=== PATIENT | male | born 1995 | race Two or more races ===

== ENCOUNTER 2021-10-05 16:24 | Emergency (ER) | payer OTHER ==
[~2021-10-05] VITALS: Ht 182.9 cm; Wt 91.0 kg
[2021-10-05] MEDS ORDERED: PERTUSS(ACELL),DIPH,TET VAC/PF 0.5 ML SYRINGE IM. ONE (18:15)
[2021-10-05] MEDS ORDERED: KETOROLAC TROMETHAMINE 30 MG/ML VIAL IM ONE (18:15)
[2021-10-05] MEDS ORDERED: BACITRACIN 0.9 GM PACKET OINTMENT TP ONE (18:15)
[2021-10-05] MEDS ORDERED: ACETAMINOPHEN 500 MG TABLET PO ONE (18:15)
[2021-10-05] MEDS ORDERED: DOXYCYCLINE HYCLATE 100 MG TABLET PO ONE ×2 (19:00→19:45)
[2021-10-05] MEDS ORDERED: LIDOCAINE/PF 1% 2 ML VIAL IM ONE (19:45)
[2021-10-05] MEDS ORDERED: CefTRIAXone SODIUM 1 GM/VIAL IM ONE (19:45)
[2021-10-05 20:52] LABS: COVID AG,FIA SOURCE NASOPHARYNGEAL
[2021-10-05 21:11] VITALS: BP 129/75
== END 2021-10-05 21:14 ==
LOC: EMS 16:27
DX: S91.112A Laceration without foreign body of left great toe without damage to nail, initial encounter (principal); S90.112A Contusion of left great toe without damage to nail, initial encounter; Z20.822 Contact with and (suspected) exposure to COVID-19; W45.8XXA Other foreign body or object entering through skin, initial encounter; Y93.89 Activity, other specified; Y92.89 Other specified places as the place of occurrence of the external cause; Y99.8 Other external cause status
CPT/HCPCS: 99284; 87426; 73660; 90715; 90471; 96372; J0696; J1885; J3490

== ENCOUNTER 2021-10-10 14:51 | Emergency (ER) | payer OTHER ==
[~2021-10-10] VITALS: Ht 182.9 cm; Wt 95.5 kg
[2021-10-10] MEDS ORDERED: ACETAMINOPHEN 500 MG TABLET PO ONE (16:45)
[2021-10-10 20:29] VITALS: BP 139/100
== END 2021-10-10 20:46 | disposition home or self-care (01) ==
LOC: EMS 14:51
DX: S09.90XA Unspecified injury of head, initial encounter (principal); H11.32 Conjunctival hemorrhage, left eye; Y04.0XXA Assault by unarmed brawl or fight, initial encounter; Y93.89 Activity, other specified; Y92.89 Other specified places as the place of occurrence of the external cause; Y99.8 Other external cause status
CPT/HCPCS: 70450; 70486; 87491; 87591; 99284